=== PATIENT | female | born 1990 | race American Indian/Alaskan Native ===

== ENCOUNTER 2021-07-26 16:50 | Emergency (ER) | payer MEDICAID ==
[~2021-07-26] VITALS: Ht 157.5 cm; Wt 47.7 kg
[2021-07-26 16:57] VITALS: BP 126/75
[2021-07-26 18:21] LABS: BASOPHILS % (AUTO) 0.1 % (0-1); EOSINOPHILS # (AUTO) 0.4 X10'3 (0-0.9); EOSINOPHILS % (AUTO) 5.1 % (0-6); HEMOGLOBIN 11.4 g/dl (12.0-16.0); LYMPHOCYTES # (AUTO) 2.5 X10'3 (1.1-4.8); MEAN CORPUSCULAR HEMOGLOBIN 25.6 PG (27.0-31.0); MEAN CORPUSCULAR HGB CONC 32.6 g/dL (33.0-36.5); MEAN CORPUSCULAR VOLUME 78.7 FL (78-98); MONOCYTES # (AUTO) 0.5 X10'3 (0-0.9); MONOCYTES % (AUTO) 6.5 % (2-12); NEUTROPHILS # (AUTO) 3.7 X10'3 (1.8-7.7); NEUTROPHILS % (AUTO) 52.3 % (42-75); PLATELET COUNT 281 X10'3 (140-440); RED BLOOD COUNT 4.44 X10'6 (4.20-5.60); RED CELL DISTRIBUTION WIDTH 17.1 % (11.5-14.5)
[2021-07-26 18:40] LABS: ALANINE AMINOTRANSFERASE 16 U/L (12-78); ALBUMIN 3.1 G/DL (3.4-5.0); ALBUMIN/GLOBULIN RATIO 0.6 (1.1-1.5); ALKALINE PHOSPHATASE 96 IU/L (46-116); ANION GAP 13 (8-16); ASPARTATE AMINO TRANSFERASE 12 U/L (10-37); BILIRUBIN,TOTAL 0.2 MG/DL (0.1-1.0); BLOOD UREA NITROGEN 7 MG/DL (7-18); BUN/CREATININE RATIO 19.4 (6.6-38.0); CALCIUM 8.6 MG/DL (8.5-10.1); CHLORIDE 104 MMOL/L (99-107); CREATININE 0.36 MG/DL (0.40-0.90); GLUCOSE 84 MG/DL (70-104); POTASSIUM 3.3 MMOL/L (3.5-5.1); SODIUM 143 MMOL/L (135-145); TOTAL CARBON DIOXIDE 25.9 MMOL/L (24-32); TOTAL PROTEIN 8.2 G/DL (6.4-8.2); eGFR > 90 ML/MIN
[2021-07-26 18:59] LABS: C-REACTIVE PROTEIN 1.61 MG/DL (0.0-0.5); LACTATE DEHYDROGENASE 154 U/L (81-234)
[2021-07-26] MEDS ORDERED: morphine 4 MG/ML inj SYRINge IV ONE (19:10)
[2021-07-26] MEDS ORDERED: normal saline 1000ML IV soln IVB ONE (19:10)
[2021-07-26 22:21] LABS: CLARITY,URINE CLOUDY (Clear); COLOR,URINE YELLOW (Yellow); GLUCOSE, URINE NEGATIVE (Neg); KETONES,URINE NEGATIVE (Neg); LEUKOCYTE ESTERASE ,URINE TRACE (Neg); NITRITES, URINE NEGATIVE (Neg); OCCULT BLOOD,URINE MODERATE (Neg); PH,URINE 6.5 (4.8-8.0); PROTEIN,URINE >=300 mg/dl (Neg); UA COLLECTION TYPE STRAIGHT CATH; UROBILINOGEN,URINE 0.2 E.U/dL (0.2-1.0)
[2021-07-26 22:29] LABS: RBC,URINE 20-50 /HPF (0-2)
[2021-07-26 22:30] LABS: BACTERIA,URINE 2+ /HPF (Neg); MUCUS STRANDS MANY /LPF (Neg); SQUAMOUS EPITHELIAL CELL,UR FEW /LPF (FEW)
[2021-07-26] MEDS ORDERED: CEPH500C2 PO (22:46)
[2021-07-26] MEDS ORDERED: cephalexin 250mg capsule PO ONE (23:10)
== END 2021-07-26 23:09 | disposition home or self-care (01) ==
LOC: ER 16:52
DX: N39.0 Urinary tract infection, site not specified (principal); R07.89 Other chest pain; R05.9 Cough, unspecified; G82.20 Paraplegia, unspecified; F17.200 Nicotine dependence, unspecified, uncomplicated; Z98.890 Other specified postprocedural states; Z59.00 Homelessness unspecified; Z88.1 Allergy status to other antibiotic agents; Z88.8 Allergy status to other drugs, medicaments and biological substances; Z79.2 Long term (current) use of antibiotics
CPT/HCPCS: 36415; 71045; 74176; 80053; 81001; 83615; 85025; 85651; 86140; 87077; 87088; 87186; 96374; 99285; J2270; J7030

== ENCOUNTER 2021-08-26 09:43 | Emergency (ER) | payer MEDICAID ==
[~2021-08-26] VITALS: Ht 157.5 cm; Wt 50.0 kg
[2021-08-26 11:01] LABS: CLARITY,URINE SLIGHTLY CLOUDY (Clear); COLOR,URINE YELLOW (Yellow); GLUCOSE, URINE NEGATIVE (Neg); KETONES,URINE NEGATIVE (Neg); LEUKOCYTE ESTERASE ,URINE LARGE (Neg); NITRITES, URINE POSITIVE (Neg); OCCULT BLOOD,URINE TRACE-INTACT (Neg); PH,URINE 8.5 (4.8-8.0); PROTEIN,URINE TRACE mg/dl (Neg); UROBILINOGEN,URINE 0.2 E.U/dL (0.2-1.0)
[2021-08-26 11:03] LABS: BASOPHILS % (AUTO) 0.4 % (0-1); EOSINOPHILS # (AUTO) 0.3 X10'3 (0-0.9); EOSINOPHILS % (AUTO) 3.3 % (0-6); HEMATOCRIT 34.1 % (35.0-45.0); HEMOGLOBIN 11.2 g/dl (12.0-16.0); LYMPHOCYTES # (AUTO) 2.6 X10'3 (1.1-4.8); LYMPHOCYTES % (AUTO) 33.2 % (21-51); MEAN CORPUSCULAR HEMOGLOBIN 25.1 PG (27.0-31.0); MEAN CORPUSCULAR HGB CONC 32.9 g/dL (33.0-36.5); MEAN CORPUSCULAR VOLUME 76.4 FL (78-98); MEAN PLATELET VOLUME 8.2 FL (7.4-10.4); MONOCYTES # (AUTO) 0.5 X10'3 (0-0.9); MONOCYTES % (AUTO) 6.8 % (2-12); NEUTROPHILS # (AUTO) 4.3 X10'3 (1.8-7.7); NEUTROPHILS % (AUTO) 56.3 % (42-75); PLATELET COUNT 385 X10'3 (140-440); RED BLOOD COUNT 4.46 X10'6 (4.20-5.60); RED CELL DISTRIBUTION WIDTH 15.6 % (11.5-14.5); WHITE BLOOD COUNT 7.7 X10'3 (4.5-11.0)
[2021-08-26 11:03] LABS: UA COLLECTION TYPE FOLEY CATH
[2021-08-26 11:11] LABS: MUCUS STRANDS MODERATE /LPF (Neg); SQUAMOUS EPITHELIAL CELL,UR FEW /LPF (FEW)
[2021-08-26 11:12] LABS: TRIPLE PHOSPHATE CRYST 3+ /HPF (NEGATIVE)
[2021-08-26 11:15] LABS: TRANSITIONAL EPI CELLS,URINE FEW /HPF
[2021-08-26 11:17] LABS: ALANINE AMINOTRANSFERASE 15 U/L (12-78); ALBUMIN 3.1 G/DL (3.4-5.0); ALBUMIN/GLOBULIN RATIO 0.5 (1.1-1.5); ALKALINE PHOSPHATASE 93 IU/L (46-116); ANION GAP 9 (8-16); ASPARTATE AMINO TRANSFERASE 10 U/L (10-37); BILIRUBIN,TOTAL 0.2 MG/DL (0.1-1.0); BLOOD UREA NITROGEN 6 MG/DL (7-18); BUN/CREATININE RATIO 14.6 (6.6-38.0); CHLORIDE 103 MMOL/L (99-107); CREATININE 0.41 MG/DL (0.40-0.90); GLUCOSE 63 MG/DL (70-104); SODIUM 140 MMOL/L (135-145); TOTAL CARBON DIOXIDE 28.3 MMOL/L (24-32); TOTAL PROTEIN 8.9 G/DL (6.4-8.2); eGFR > 90 ML/MIN
[2021-08-26 11:21] LABS: BACTERIA,URINE 2+ /HPF (Neg)
[2021-08-26] MEDS ORDERED: magnesium 2GM in 50ml NS 50 ML IV ONE (11:30)
[2021-08-26] MEDS ORDERED: potassium Cl 20 mEq SR tablet PO ONE (11:30)
[2021-08-26] MEDS ORDERED: LORazepam 1 MG tablet PO ONE (11:45)
[2021-08-26] MEDS ORDERED: acetaminophen 325mg tablet PO ONE (13:30)
[2021-08-26 14:06] VITALS: BP 107/65
--- NOTE | 2021-09-05 11:52 | NUR ---
PT CALLED RETARDING LAB RESULTS FROM HER VISIT ON 08/26/21. PT STATES THAT SHE CONTINUES TO FEEL UNWELL. INFORMED THAT SHE HAS A UTI AND THAT AN ABX WILL BE CALLED INTO THE PHARMACY OF HER CHOICE. PT REQUESTED THAT THE RX BE CALLED TO [facility] ON [address]. LEVAQUIN 500MG, 1 PO DAILY x5 DAYS; #5 WAS CALLED INTO [facility] ON [address] REQUESTED.
== END 2021-08-26 14:08 | disposition home or self-care (01) ==
LOC: ER 09:43
DX: Z48.00 Encounter for change or removal of nonsurgical wound dressing (principal); R11.0 Nausea; F41.9 Anxiety disorder, unspecified; R61 Generalized hyperhidrosis; Z98.890 Other specified postprocedural states; Z59.00 Homelessness unspecified; Z88.1 Allergy status to other antibiotic agents; Z88.8 Allergy status to other drugs, medicaments and biological substances
CPT/HCPCS: 36415; 51702; 73620; 80053; 81001; 83605; 84145; 85025; 87040; 87077; 87088; 87186; 93005; 96365; 96366; 99285; A6223; J3475; A4314; A6449

== ENCOUNTER 2021-10-11 09:31 | Inpatient (IN) | payer MEDICAID ==
[~2021-10-11] VITALS: Ht 162.6 cm; Wt 47.0 kg
[2021-10-11] MEDS ORDERED: vancomycin/NS 1 GM ADD-VANTAGE 250 ML IV ONE (09:50)
[2021-10-11] MEDS ORDERED: piperacillin/tazo 3.375gm/50ml 50 ML IV ONE (09:50)
[2021-10-11] MEDS ORDERED: normal saline 1000ML IV soln IV ONE (09:50)
[2021-10-11] MEDS ORDERED: acetaminophen 325mg tablet PO STA (09:50)
[2021-10-11 11:14] LABS: BASOPHILS # (AUTO) 0.1 X10'3 (0-0.2); BASOPHILS % (AUTO) 0.3 % (0-1); EOSINOPHILS # (AUTO) 0.1 X10'3 (0-0.9); EOSINOPHILS % (AUTO) 0.7 % (0-6); HEMATOCRIT 33.5 % (35.0-45.0); LYMPHOCYTES # (AUTO) 1.6 X10'3 (1.1-4.8); LYMPHOCYTES % (AUTO) 8.3 % (21-51); MEAN CORPUSCULAR HEMOGLOBIN 24.6 PG (27.0-31.0); MEAN CORPUSCULAR HGB CONC 32.7 g/dL (33.0-36.5); MEAN CORPUSCULAR VOLUME 75.2 FL (78-98); MEAN PLATELET VOLUME 8.3 FL (7.4-10.4); MONOCYTES % (AUTO) 5.2 % (2-12); NEUTROPHILS # (AUTO) 16.5 X10'3 (1.8-7.7); NEUTROPHILS % (AUTO) 85.5 % (42-75); PLATELET COUNT 553 X10'3 (140-440); RED BLOOD COUNT 4.45 X10'6 (4.20-5.60); RED CELL DISTRIBUTION WIDTH 16.5 % (11.5-14.5); WHITE BLOOD COUNT 19.3 X10'3 (4.5-11.0)
[2021-10-11 11:36] LABS: ALANINE AMINOTRANSFERASE 15 U/L (12-78); ALBUMIN 2.8 G/DL (3.4-5.0); ALBUMIN/GLOBULIN RATIO 0.4 (1.1-1.5); ALKALINE PHOSPHATASE 116 IU/L (46-116); ANION GAP 18 (8-16); ASPARTATE AMINO TRANSFERASE 11 U/L (10-37); BILIRUBIN,TOTAL 0.7 MG/DL (0.1-1.0); BLOOD UREA NITROGEN 13 MG/DL (7-18); BUN/CREATININE RATIO 17.3 (6.6-38.0); CALCIUM 10.2 MG/DL (8.5-10.1); CHLORIDE 95 MMOL/L (99-107); CREATININE 0.75 MG/DL (0.40-0.90); GLUCOSE 101 MG/DL (70-104); MAGNESIUM 1.9 MG/DL (1.5-2.4); SODIUM 132 MMOL/L (135-145); TOTAL CARBON DIOXIDE 18.7 MMOL/L (24-32); TOTAL PROTEIN 10.3 G/DL (6.4-8.2); eGFR 90 ML/MIN
--- NOTE | 2021-10-11 11:39 | NUR ---
k 2.6 ER aware
[2021-10-11 11:40] LABS: POTASSIUM 2.6 MMOL/L (3.5-5.1)
[2021-10-11] MEDS ORDERED: potassium Cl 10 mEq/100mL bag IV ONE (11:55)
--- NOTE | 2021-10-11 12:27 | NUR ---
SPOKE WITH PAULY JOY WHO CHECKED FOR IV ACCESS, THERE IS NOT ONE CURRENTLY AND I ASKED IF HE COULD REQUEST ONE BE ESTABLISHED FOR THE CT SCAN ORDERED
[2021-10-11] MEDS ORDERED: ondansetron/PF 4mg/2ml inj IV ONE (13:05)
--- NOTE | 2021-10-11 13:06 | NUR ---
pt reports nausea when receiving iodine/contrast. ed tierney washburn made aware and verbal order for zofran 4mg iv x1 dose now received before pt goes to ct. order placed as received
[2021-10-11] MEDS ORDERED: morphine 2 MG/ML inj. syringe IV PRN ×2 (16:10)
[2021-10-11] MEDS ORDERED: magnesium hydroxide 30ml (MOM) UD suspension PO PRN (16:10)
[2021-10-11] MEDS ORDERED: magnesium 4gm in 100ml NS 100 ML IV PRN (16:10)
[2021-10-11] MEDS ORDERED: magnesium 2GM in 50ml NS 50 ML IV PRN (16:10)
[2021-10-11] MEDS ORDERED: POTASSIUM BICARB 20meq eff tab 20 MEQ TABLET.EFF PO PRN ×2 (16:10)
[2021-10-11] MEDS ORDERED: acetaminophen 325mg tablet PO PRN ×2 (16:10)
[2021-10-11] MEDS ORDERED: potassium CL 10mEq/100ml bag 100 ML IV PRN (16:10)
[2021-10-11] MEDS ORDERED: HYDROcodone/acetaminophen 10/325mg tab PO PRN (16:10)
[2021-10-11] MEDS ORDERED: ondansetron/PF 4mg/2ml inj IV PRN (16:10)
[2021-10-11] MEDS ORDERED: mag hydrox/Alum hydrox/simeth 30ml oral suspension PO PRN (16:10)
--- NOTE | 2021-10-11 16:28 | NUR ---
HOSPITALIST AT BEDSIDE TO EVAL WITH FEMALE CHAPPERONE
[2021-10-11 16:33] LABS: MAGNESIUM 1.7 MG/DL (1.5-2.4)
[2021-10-11 16:35] LABS: POTASSIUM 2.6 MMOL/L (3.5-5.1)
[2021-10-11] MEDS: HYDROcodone/acetaminophen 5mg/325mg tablet PO PRN (19:31)
[2021-10-11] MEDS ORDERED: docusate sod 100mg capsule PO SCH (20:00)
[2021-10-11] MEDS ORDERED: enoxaparin 40mg/0.4ml syringe SQ SCH (20:00)
[2021-10-11] MEDS: K and/or MAG REPLACEMENT MC SCH (20:16)
--- NOTE | 2021-10-11 23:17 | NUR ---
pt given a sandwich
[2021-10-12] MEDS ORDERED: piperacillin/tazo 4.5gm/100ml 100 ML IV SCH
[2021-10-12] MEDS: HYDROcodone/acetaminophen 5mg/325mg tablet PO PRN (00:10)
[2021-10-12 00:23] VITALS: BP 101/61
[2021-10-12] MEDS ORDERED: vancomycin/NS 1 GM ADD-VANTAGE 250 ML IV SCH (03:00)
[2021-10-12 06:24] LABS: BASOPHILS % (AUTO) 0.5 % (0-1); EOSINOPHILS # (AUTO) 0.2 X10'3 (0-0.9); EOSINOPHILS % (AUTO) 3.7 % (0-6); HEMATOCRIT 22.3 % (35.0-45.0); HEMOGLOBIN 7.2 g/dl (12.0-16.0); LYMPHOCYTES % (AUTO) 18.7 % (21-51); MEAN CORPUSCULAR HEMOGLOBIN 24.6 PG (27.0-31.0); MEAN CORPUSCULAR HGB CONC 32.3 g/dL (33.0-36.5); MEAN CORPUSCULAR VOLUME 76.3 FL (78-98); MEAN PLATELET VOLUME 8.1 FL (7.4-10.4); MONOCYTES # (AUTO) 0.4 X10'3 (0-0.9); MONOCYTES % (AUTO) 7.7 % (2-12); NEUTROPHILS # (AUTO) 3.8 X10'3 (1.8-7.7); NEUTROPHILS % (AUTO) 69.4 % (42-75); PLATELET COUNT 278 X10'3 (140-440); RED BLOOD COUNT 2.92 X10'6 (4.20-5.60); RED CELL DISTRIBUTION WIDTH 16.7 % (11.5-14.5); WHITE BLOOD COUNT 5.4 X10'3 (4.5-11.0)
[2021-10-12 06:46] LABS: ALANINE AMINOTRANSFERASE 12 U/L (12-78); ALBUMIN 1.7 G/DL (3.4-5.0); ALBUMIN/GLOBULIN RATIO 0.4 (1.1-1.5); ALKALINE PHOSPHATASE 77 IU/L (46-116); ANION GAP 10 (8-16); ASPARTATE AMINO TRANSFERASE 9 U/L (10-37); BILIRUBIN,TOTAL 0.2 MG/DL (0.1-1.0); BLOOD UREA NITROGEN 9 MG/DL (7-18); BUN/CREATININE RATIO 24.3 (6.6-38.0); CALCIUM 7.6 MG/DL (8.5-10.1); CHLORIDE 111 MMOL/L (99-107); CREATININE 0.37 MG/DL (0.40-0.90); GLUCOSE 87 MG/DL (70-104); MAGNESIUM 1.5 MG/DL (1.5-2.4); SODIUM 142 MMOL/L (135-145); TOTAL CARBON DIOXIDE 20.7 MMOL/L (24-32); TOTAL PROTEIN 6.1 G/DL (6.4-8.2); eGFR > 90 ML/MIN
[2021-10-12 07:13] LABS: POTASSIUM 2.5 MMOL/L (3.5-5.1)
[2021-10-12] MEDS: K and/or MAG REPLACEMENT MC SCH (07:34)
--- NOTE | 2021-10-12 07:45 | NUR ---
I became aware of a problem with a canine in patients room. I came in to discuss patients concerns with canine not being able to come to admitted room with her. I stated to her that we could call [facility] and see if they have availability to house canine til she was well enough/ discharged from hospital to come get the animal. At which patient interupted me stated, "I've tried that it other cities and they don't keep my dog for long enough." I stated to her that we could at least call and ask, She again interupted me before I could finish. She stated that her dog does not need to be put in a cage and that its not his fault that she is here. I stated well can your boyfriend take care of your dog until you are discharge. She stated that they are homeless living in their vehicle and that it is to hot for her dog to be outside. Furthermore, her dog has anxiety and has to follow 15 plus commands that her boyfriend does not know. Her dog does not listen to her boyfriend. Stating also that, "my dog is not going to live two separate lives." I stated her that she needs to get well in order to be able to continue to take care of her dog, at which she tearfully interupted speaking loudly. Then she tearful, raising her voice stating, "I have enough antibiotics in my system to be fine for a few weeks and I have had sepsis 4 times, so its fine." I educated patient that; that is not how antibiotics work. She disagreed. Throughout conversation, patient interupted me when I attempt to come up with solutions. I asked her if she could let me finish explain some solutions. She stated, "your not my mother and you need to treat me with respect". I stated to her that she has not once let me finish the information I have been trying to relay and that she has been shouting at me for most of the conversation. She told me that, "this is not yelling, you'll know when I'm yelling." I stated to her that I have nothing to add, other than I didn't think it was a good decision to leave. Patient then shouted, "I'm done talking to you." I agreed and left the room.
--- NOTE | 2021-10-12 07:58 | NUR ---
PT HAD A ROOM ASSIGNMENT. EXPLAINED TO PT THAT HER DOG IS NOT ABLE TO GO TO THE FLOOR WITH HER. PT GOT UPSET SAYING SHE HAS TO HAVE HER SERVICE DOG WITH HER BECAUSE HE WILL OUTSIDE WITHOUT HER. PT AT BEDSIDE BUT UNABLE TO VISIT PER COVID VISITOR REGULATIONS. PT UNVACCINATED AND UNABLE TO GET TESTED BECAUSE HE HAS NO MONEY. PT AND HER ARE CURRENTLY HOMELESS W/ HER DOG. PT BECOMING AGITATED AND YELLING. PULLING OFF HER LINES AND REMOVING HER IV. SHE STATED GIVE ME MY AMA PAPERWORK SO I CAN GO. NAMED ACCOUNT EXECUTIVE ADRESSED SITUATION AND OFFERED ASSISTANCE FOR HER DOG TO BE CARED FOR BY THE [facility] UNTIL SHE GETS OUT. PT CONTINUES TO REQUEST TO LEAVE. DR. PLATT WAS NOTIFIED AND AWARE OF THE SITUATION. I GAVE AN SBAR ON PT AND CURRENT LAB VALUES. PT HAD CRITICAL K LEVEL OF 2.5, I ADMINISTERED 40MEQ PO POTASSIUM SUPPLEMENT HOWEVER PT REFUSED TO DRINK IT. I EXPLAINED TO HER THAT SHE COULD DEVELEOP CARDIAC COMPLICATIONS DUE TO LOW [OTASSIUM AND SHE STATED " I DONT CARE! LOOK AT MY PAPERWORK, I AM A DNR BECAUSE I WANT TO ". SECURITY WAS AT BEDSIDE AND ACCOMPANIED PT OUT OF THE ER.
[2021-10-13] MEDS ORDERED: VANCOMYCIN LEVEL IV ONE (02:30)
== END 2021-10-12 09:09 | disposition left against medical advice (07) | DRG 720 ==
LOC: ER 09:32 → ED HOLD 16:15 → EDBEDREQ 10-12 07:12
PROVIDERS: ADMIT Family Medicine; ATTEND Family Medicine
PROC: BW251ZZ Computerized Tomography (CT Scan) of Chest, Abdomen and Pelvis using Low Osmolar Contrast (ICD-10-PCS; principal; 2021-10-11)
DX: A41.9 Sepsis, unspecified organism (principal); L89.314 Pressure ulcer of right buttock, stage 4; G82.20 Paraplegia, unspecified; I96 Gangrene, not elsewhere classified; L89.324 Pressure ulcer of left buttock, stage 4; M86.671 Other chronic osteomyelitis, right ankle and foot; M86.672 Other chronic osteomyelitis, left ankle and foot; F17.210 Nicotine dependence, cigarettes, uncomplicated; Z53.29 Procedure and treatment not carried out because of patient's decision for other reasons; E87.6 Hypokalemia; L03.032 Cellulitis of left toe; L03.031 Cellulitis of right toe; F12.90 Cannabis use, unspecified, uncomplicated; Z66 Do not resuscitate; Z86.61 Personal history of infections of the central nervous system; Z87.730 Personal history of (corrected) cleft lip and palate; Z93.3 Colostomy status; Z98.1 Arthrodesis status; Z99.3 Dependence on wheelchair; Z59.00 Homelessness unspecified; Z88.2 Allergy status to sulfonamides; Z88.8 Allergy status to other drugs, medicaments and biological substances; Z90.49 Acquired absence of other specified parts of digestive tract; Z71.6 Tobacco abuse counseling
CPT/HCPCS: 36415; 71045; 71260; 74177; 80053; 83605; 83735; 84132; 84145; 84484; 85025; 87040; 87077; 93005; 93306; 93925; 96374; 96375; 99285; G0378; J2405; J2543; J3370; J3480; J3490; J7030